=== PATIENT | male | born 1965 | race Caucasian/White ===

== ENCOUNTER 2016-09-15 13:16 | Emergency (ER) | payer OTHER ==
[~2016-09-15] VITALS: Wt 88.0 kg
[~2016-09-15 13:16] MED LIST: ACETAMINOPHEN A1 TAB PO; AMBIEN10 MG PO; Diabeta,Micron2.5 MG PO; LISINOPRIL40 MG PO; MOTRIN800 MG PO; ROBAXIN500 MG PO; VENLAFAXINE HCL; VENLAFAXINE HYD75 M3 PO
[2016-09-15] MEDS ORDERED: DOC-Q-LAX 50 MG1 TAB PO (13:23)
[2016-09-15] MEDS ORDERED: PERCOCET 325 MG1 TA3 PO (13:23)
[2016-09-15] MEDS ORDERED: RESTORIL15 MG PO (13:24)
[2016-09-15] MEDS ORDERED: TRAD5TAB1 PO (13:24)
[2016-09-15] MEDS ORDERED: REPAGLINIDE1 M1 PO (13:24)
[2016-09-15] MEDS ORDERED: AMLODIPINE BESYL5 MG PO (13:24)
[2016-09-15] MEDS ORDERED: JARDIANCE10 MG PO (13:25)
[2016-09-15] MEDS ORDERED: VITAMIN D1000 IU PO (13:25)
[2016-09-15] MEDS ORDERED: CYMBALTA60 MG PO (13:25)
[2016-09-15] MEDS ORDERED: CATAPRES-T0.1 MG/24 TD (13:25)
[2016-09-15] MEDS ORDERED: FISH OIL1000 MG PO (13:25)
[2016-09-15] MEDS ORDERED: DEPO TESTOS200 MG/ML IM (13:26)
[2016-09-15] MEDS ORDERED: IBUPROFEN IB200 M1 PO (13:26)
[2016-09-15] MEDS ORDERED: KEFLEX500 M1 PO (13:32)
[2016-09-15] MEDS ORDERED: NAPROSYN500 MG PO (13:32)
[2016-09-15] MEDS ORDERED: BACTRIM DS 8001 TA1 PO (13:32)
== END 2016-09-15 14:52 | disposition home or self-care (01) ==
LOC: ED 13:16
DX: L03.115 Cellulitis of right lower limb (principal); R03.0 Elevated blood-pressure reading, without diagnosis of hypertension; I10 Essential (primary) hypertension; E11.9 Type 2 diabetes mellitus without complications; Z79.899 Other long term (current) drug therapy